=== PATIENT | male | born 1940 | race Caucasian/White ===

== ENCOUNTER → 2017-03-30 | Outpatient (CLI) | payer OTHER ==
--- NOTE | 2017-04-01 10:25 | RSPPFT ---
DATE OF PROCEDURE: 03/30/17 COMMENTS: VOLUMES DYNAMIC: FVC and FEV1 normal. STATIC: RV mildly increased; TLC and FRC normal. FLOWS: FEV1% mildly reduced; FEF 25-75 severely reduced. DIFFUSION; Moderately reduced. FLOW VOLUME LOOP: Pattern of variable intrathoracic airways obstruction. IMPRESSION: Mild obstructive ventilatory defect with mild hyperinflation and a reduction in diffusion. Airways resistance is increased but there is minimal change post-bronchodilator.
== END ==
LOC: HRSP 10:47
PROVIDERS: ATTEND Internal Medicine
DX: J44.9 Chronic obstructive pulmonary disease, unspecified (principal)
CPT/HCPCS: 94060; 94620; 94726; 94729; 95012

== ENCOUNTER → 2017-12-07 | Outpatient (CLI) | payer OTHER | LOC: HRSP 09:46 | PROVIDERS: ATTEND Internal Medicine | DX: J44.9 Chronic obstructive pulmonary disease, unspecified (principal) | CPT/HCPCS: 94060; 94618; 94726; 94729 ==